=== PATIENT | male | born 1955 | race Caucasian/White ===

== ENCOUNTER 2017-04-15 10:58 | Emergency (ER) | payer SELFPAY ==
[~2017-04-15] VITALS: Ht 172.7 cm; Wt 77.0 kg
[2017-04-15 10:59] VITALS: BP 133/89; PULSE 101; RESP 20; TEMP 97.9; O2SAT 98
--- NOTE | 2017-04-15 12:08 | RADRPT ---
EXAM DATE/TIME: 04/15/2017 11:47 [place] COMPARISON: No previous studies available for comparison. INDICATIONS : Left shoulder pain post fall from ladder. MEDICAL HISTORY : None. SURGICAL HISTORY : surgery to clavicle ENCOUNTER: Initial ACUITY: 2 days PAIN SCORE: 7/10 LOCATION: Left Shoulder FINDINGS: Previous clavicle repair. Negative for acute fracture. Anatomic alignment. CONCLUSION: Negative for an acute fracture. Cl Cline MD FACR on April 15, 2017 at 12:05 Board Certified Radiologist. This report was verified electronically.
--- NOTE | 2017-04-15 12:28 | PD ---
HPI . Fall, left shoulder pain Chief Complaint: Fall Time Seen by Provider: 11:15 Travel History International Travel<30 days: No Contact w/Intl Traveler<30days: No Traveled to known affect area: No History of Present Illness HPI 61-year-old male patient presents emergency department for evaluation of left shoulder pain after falling off of a step stool approximately 5 feet high and landing on his left shoulder. Patient has a history of clavicle repair on the left shoulder and has a steel plate in place. Left arm is neurovascularly intact. Patient denies any loss of consciousness. Patient denies any blood thinners. There is no erythema, edema, obvious deformity or ecchymosis noted. PFSH Social History Tobacco Use: No Allergies-Medications (Allergen,Severity, Reaction): Coded Allergies: No Known Allergies (Verified Allergy, Unknown, 04/15/17) Reported Meds & Prescriptions Reported Meds & Active Scripts Active Tramadol (Tramadol HCl) 50 Mg Tab 50 Mg PO Q6H PRN Review of Systems Except as stated in HPI: all other systems reviewed are Neg Physical Exam Narrative GENERAL: Well-nourished, well-developed 61-year-old male patient in no acute distress. Nontoxic appearing. SKIN: Focused skin assessment warm/dry. HEAD: Normocephalic. Atraumatic. EYES: No scleral icterus. No injection or drainage. NECK: Supple, trachea midline. No JVD or lymphadenopathy. CARDIOVASCULAR: Regular rate and rhythm without murmurs, gallops, or rubs. RESPIRATORY: Breath sounds equal bilaterally. No accessory muscle use. GASTROINTESTINAL: Abdomen soft, non-tender, nondistended. MUSCULOSKELETAL: No cyanosis, obvious deformity, erythema, ecchymosis or edema. BACK: Nontender without obvious deformity. No CVA tenderness. Data Data Last Documented VS Vital Signs Date Time Temp Pulse Resp B/P (MAP) Pulse Ox O2 Delivery O2 Flow Rate FiO2 04/15/17 10:59 97.9 101 20 133/89 (104) 98 Room Air Orders Orders Shoulder, Complete (>2vws) (04/15/17 11:20) Ed Discharge Order (04/15/17 12:37) MDM Medical Decision Making Medical Screen Exam Complete: Yes Emergency Medical Condition: Yes Differential Diagnosis Differential diagnoses include but not limited to fracture, strain, sprain, contusion Narrative Course 61-year-old male patient presents emergency department for evaluation of left shoulder pain after falling on it yesterday morning. Patient is visiting from out of town. That arm is neurovascularly intact. There is no obvious deformity , ecchymosis, erythema, cyanosis. X-ray of the left shoulder shows no acute fracture dislocation. Patient offered a sling but states he is going to go to the drugstore and get a nicer one that we have. Patient requests tramadol to help him sleep due to the pain he was unable to sleep last night. Patient given a prescription for tramadol. Patient states he is going to get an MRI with his primary care when he gets back into town. Patient stable for discharge. Patient Discharged home at this time. Diagnosis Primary Impression: Left shoulder pain Qualified Codes: M25.512 - Pain in left shoulder Referrals: Primary Care Physician Patient Instructions: General Instructions, Shoulder Sprain (GEN) Additional Instructions: Please return to emergency department if your symptoms return or worsen. Follow up with your primary care provider. Take medications as prescribed. Med/Other Pt SpecificInfo: Prescription(s) given Scripts Tramadol (Tramadol) 50 Mg Tab 50 MG PO Q6H Y for PAIN, #15 TAB 0 Refills Prov: Jon Malik MD 04/15/17 Disposition: 01 DISCHARGE HOME Condition: Stable Angeles Kennedy Apr 15, 2017 12:28
[2017-04-15] MEDS ORDERED: TRAM50TA PO (12:37)
== END 2017-04-15 12:48 | disposition home or self-care (01) ==
LOC: NEPK 10:58
DX: M25.512 Pain in left shoulder (principal)
CPT/HCPCS: 73030; 99283